=== PATIENT | female | born 1940 | race Caucasian/White ===

== ENCOUNTER 2017-10-21 17:09 | Observation (INO) ==
[2017-10-21] MEDS: 0.9 % SODIUM CHLORIDE 1,000 ML IV SCH (16:26)
[~2017-10-21 17:09] MED LIST: PANTOPRAZOLE 80 MG in 0.9 % SODIUM CHLORIDE 100 ML IV ONE
[2017-10-21 17:34] LABS: Basophils # (Auto) 0 K/mcL (0.0-0.3); Basophils % (Auto) 0 % (0.0-2.0); Eosinophils # (Auto) 0 K/mcL (0.0-0.7); Eosinophils % (Auto) 0.6 % (0.0-7.0); Granulocytes % (Auto) 75.5 % (38.0-78.0); Lymphocytes # (Auto) 0.7 K/mcL (1.5-4.8); Lymphocytes % (Auto) 14.1 % (15.5-49.0); Mean Cell Volume 89.8 fL (80.0-100.0); Mean Corpuscular HGB Conc 34.1 g/dL (31.0-36.0); Mean Corpuscular Hemoglobin 30.7 pg (26.0-34.0); Monocytes # (Auto) 0.5 K/mcL (0.1-0.9); Monocytes % (Auto) 9.8 % (1.0-12.0); Platelet Count 248 K/mcL (140-440); RBC 2.57 M/mcL (4.00-5.20); Red Cell Distribution Width 19.8 % (11.5-14.5)
[2017-10-21 18:30] LABS: Blood Urea Nitrogen 67 mg/dl (8-23)
[2017-10-21] MEDS ORDERED: HYDROmorphone 2 MG/ML VIAL IV PRN (19:06)
[2017-10-21] MEDS ORDERED: oxyCODONE HCL 5 MG TABLET PO PRN (19:06)
[2017-10-21] MEDS ORDERED: NALOXONE HCL 0.4 MG/ML VIAL IV PRN (19:06)
[2017-10-21] MEDS ORDERED: ONDANSETRON 4 MG/2 ML VIAL IV PRN (19:06)
[2017-10-21] MEDS ORDERED: ACETAMINOPHEN 325 MG TABLET PO PRN (19:06)
[2017-10-21] MEDS ORDERED: diphenhydrAMINE 25 MG CAPSULE PO PRN (19:19)
[2017-10-21] MEDS ORDERED: HYDROcodone/APAP 5/325MG TABLET PO PRN (19:19)
[2017-10-21] MEDS ORDERED: METHOCARBAMOL 500 MG TABLET PO PRN (19:19)
--- NOTE | 2017-10-21 19:29 | Internal Med History&Physical ---
Medical - H&P: HPI Patient information: Note initiated : 10/21/17 at 7:24 pm Service Date, if different from initiated Date: [] Patient: Michelle Matthews 77 y/o F admitted on 10/21/17 for EGD. Chief Complaint: [] History of present illness: Ms. Matthews is a 77 year old Female with multiple medical issues who was here at the EGD Suite today for an EGD Scopy The patient notes that for the last few weeks she has been having epigastric pain, decreased appetitie and some nausea, she has not been eating well, she notes she has epigastric fullness and has not been eating well. The patient was seen by her GI doctor for these symptoms. Patient also reports black stools for the last 5-6 days. The patient therefore underwent an EGD scoping today which revealed a gastric ulcer. The patient was frail and weak, and the GI doctor did not feel it safe that the patient should go home. He therefore advised the patient to be admitted to the hospital for further management. The patient notes that she has has been having cough with whitish sputum over the last few days, she has had chills a couple of days ago, she denies any reported history of fever. She has burning micturition for the last 2-3 days. The patient otherwise denies any acute symptoms. On my evaluation patient had a low-grade fever of 100.6. Heart rate slightly elevated between 80 to 110, she was breathing approximately 14-18 breaths per minute, saturating 100% on room air. Labs show a hemoglobin of 7.9, hematocrit of 23, WBC count of 2.51 platelet 248. Chemistry is normal. BUN is elevated at 67. INR is 1.1. Patient is being admitted to the hospital for management of upper GI bleed, and fever. - Constitutional Constitutional: Present: chills, fatigue, fever(s), headache(s), malaise - EENT Eyes: Absent: photophobia, spots in vision, tunnel vision Nose, mouth and throat: Absent: disequilibrium, vertigo - Cardiovascular Cardiovascular: Absent: chest pain, edema, palpatations, paroxysmal nocturnal dyspnea - Respiratory Respiratory: Present: cough. Absent: wheezing, change in phlegm color - Gastrointestinal Gastrointestinal: Present: nausea, vomiting - Genitourinary Genitourinary: Present: urinary frequency, urinary urgency. Absent: urinary hesitancy, urinary incontinence - Musculoskeletal Musculoskeletal: Present: back pain, myalgias - Integumentary Integumentary: Present: rash, wounds. Absent: new lesions - Neurological Neurological: Absent: focal weakness, frequent falls, headache(s), lack of coordination, syncope - Psychiatric Psychiatric: Present: anxiety, depression - Endocrine Endocrine: Absent: polydipsia, polyphagia, polyuria - Hematologic/Lymphatic Hematologic/Lymphatic: Absent: easy bleeding, easy bruising - Allergic/Immunologic Allergic/Immunologic: Absent: uticaria, wheezing, lip swelling Medical - H&P: H Medical history: Medical History (Last Reviewed 08/24/17 @ 15:56 by Modesta Vazquez RN) Raynaud phenomenon (Acute) Decreased GFR (Acute) Ulcer of right leg (Acute) SLE (systemic lupus erythematosus) (Acute) MARKO positive (Acute) History of squamous cell carcinoma (Chronic) Ankle wound (Chronic) Lupus (Chronic) Chronic anemia (Acute) Dehydration (Acute) Elevated troponin (Acute) Ischemic cardiomyopathy (Chronic) C. difficile diarrhea (Chronic) Skin tear (Chronic) Malignant Neoplasm of Skin (Chronic) Neuropathy (Chronic) Weakness (Chronic) Ulcer of lower limbs, except pressure ulcer (Chronic) Tremor, essential (Chronic) History of tobacco use (Chronic) Temporomandibular joint disorders (Chronic) Tachycardia (Chronic) Rectal prolapse (Chronic) Radiculopathy, lumbosacral or thoracic (Chronic) Premature ventricular contractions (Chronic) Peripheral vascular disease (Chronic) Osteoporosis screening (Chronic 01/17/14) Osteopenia (Chronic) Low back pain (Chronic) Insomnia (Chronic) Hypertension, essential (Chronic) Generalized hyperhidrosis (Chronic) Fibrocystic disease of breast (Chronic) Esophageal reflux (Chronic) Elevated hemidiaphragm (Chronic) Edema (Chronic) Dyspepsia (Chronic) Situational depression (Chronic) Degenerative arthritis (Acute) Collagenous colitis (Chronic) Chronic obstructive pulmonary disease (Chronic) Ataxia (Chronic) Actinic keratosis (Chronic) Femoral artery stenosis, left (Chronic) Anemia (Resolved) Atrial fibrillation with rapid ventricular response (Resolved) Back Pain (Resolved) Bronchitis (Resolved) Cellulitis (Resolved) Community acquired pneumonia (Resolved) Contusion of right shoulder (Resolved) Dermatitis (Resolved) Streptococcus pneumoniae (Resolved) Surgical wound, non healing (Resolved) Surgical history: Past Surgical History (Last Reviewed 08/24/17 @ 15:56 by Modesta Vazquez RN) History of surgery (Chronic) History of tonsillectomy (Chronic) History of shoulder surgery (Chronic) History of lumbar fusion (Chronic) History of hysterectomy (Chronic) History of esophagogastroduodenoscopy (Chronic 04/03/14) History of cardiac catheterization (Chronic) History of breast biopsy (Chronic 11/18/10) Status post angioplasty with stent (Chronic) Pertinent family history: Family History (Last Reviewed 08/24/17 @ 15:56 by Modesta Vazquez RN) Unknown Epilepsy Family history of malignant neoplasm Family history of arthritis Essential hypertension Acute myocardial infarction Cerebrovascular accident Medical - H&P: Meds Home Medications Medication Instructions Recorded Confirmed Type clopidogrel 75 mg tablet 75 mg PO QDAY 01/23/16 10/21/17 History diphenoxylate-atropine 2.5 1 tab PO .COMPLEX PRN #150 tab 03/27/16 10/21/17 Rx mg-0.025 mg tablet aspirin 81 mg tablet,delayed 81 mg PO QDAY 06/25/16 10/21/[address] - ER 3 mg See Label Instructions .ROUTE 08/31/16 10/21/17 Rx capsule,delayed,extended release .COMPLEX #1 each bisoprolol fumarate 5 mg tablet See Label Instructions PO .COMPLEX 11/03/16 History losartan 25 mg tablet 25 mg PO QHS 30 Days #30 tab 11/03/16 10/21/17 History duloxetine 60 mg capsule,delayed 60 mg PO QDAY 90 Days #90 cap 03/18/17 Rx release bupropion HCl 75 mg tablet See Label Instructions .ROUTE 04/29/17 10/21/17 Rx .COMPLEX #60 tab furosemide 20 mg tablet 20 mg PO QDAY #90 tab 07/30/17 10/21/17 Rx cholecalciferol (vitamin D3) 1,000 1,000 unit PO ONCE 08/24/17 10/21/17 History unit capsule diphenhydramine 25 mg capsule 50 mg PO TID-QID PRN 08/24/17 10/21/17 History methocarbamol 500 mg tablet 500 mg PO BID PRN #20 tab 08/24/17 10/21/17 Rx hydrocodone 7.5 mg-acetaminophen 1 tab PO TID PRN #90 tab MDD 3 09/16/17 Rx 325 mg tablet pantoprazole 40 mg tablet,delayed 40 mg PO QAM #90 tab 10/05/17 10/21/17 Rx release Allergies Allergy/AdvReac Type Severity Reaction Status Date / Time fentanyl Allergy Severe Dizziness Verified 10/21/17 15:57 and Over Sedation asparaginase [From Elspar] Allergy Unknown Unknown Verified 10/21/17 15:57 vancomycin Allergy Unknown Unknown Verified 10/21/17 15:57 SERGIO Inhibitors AdvReac Mild Cough Verified 10/21/17 15:57 Amoxicillin [From AUGMENTIN] AdvReac Mild Diarrhea Verified 10/21/17 15:57 Cephalosporins AdvReac Mild THRUSH Verified 10/21/17 15:57 chlorthalidone AdvReac Mild Diarrhea Verified 10/21/17 15:57 [From HYGROTON] ciprofloxacin [From Cipro] AdvReac Mild Diarrhea Verified 10/21/17 15:57 clarithromycin [From BIAXIN] AdvReac Mild Diarrhea Verified 10/21/17 15:57 clavulanic acid AdvReac Mild Diarrhea Verified 10/21/17 15:57 [From AUGMENTIN] clopidogrel [From PLAVIX] AdvReac Mild Diarrhea Verified 10/21/17 15:57 Cyclobenzaprine AdvReac Mild Diarrhea Verified 10/21/17 15:57 [From Flexeril] doxycycline [DOXYCYCLINE] AdvReac Mild DIZZINESS, Verified 10/21/17 15:57 NAUSEA, DIARRHEA Erythromycin Base AdvReac Mild Nausea Verified 10/21/17 15:57 levofloxacin [LEVOFLOXACIN] AdvReac Mild Diarrhea Verified 10/21/17 15:57 meperidine [From Demerol] AdvReac Mild Vomiting Verified 10/21/17 15:57 metoclopramide [From REGLAN] AdvReac Mild Diarrhea Verified 10/21/17 15:57 Minocycline [MINOCYCLINE] AdvReac Mild Diarrhea & Verified 10/21/17 15:57 Nausea rofecoxib [From VIOXX] AdvReac Mild Diarrhea Verified 10/21/17 15:57 Sulfa (Sulfonamide AdvReac Mild THRUSH Verified 10/21/17 15:57 Antibiotics) tramadol [From ULTRAM] AdvReac Mild Diarrhea Verified 10/21/17 15:57 venlafaxine [From EFFEXOR] AdvReac Mild Diarrhea Verified 03/15/18 15:57 ELS Allergy Unknown Unknown Uncoded 08/24/17 15:56 Medical - H&P: Exam - Constitutional Vitals: Temp Pulse Resp BP Pulse Ox 100.6 F H 98 H 20 136/82 100 10/21/17 16:45 10/21/17 18:14 10/21/17 18:14 10/21/17 18:14 10/21/17 18:14 Exam: GENERAL: The patient is a malnourished in no apparent distress. Is alert and oriented x3. VITAL SIGNS: Reviewed and as noted elsewhere. HEENT: Head is normocephalic and atraumatic. Extraocular muscles are intact. Pupils are equal, round, and reactive to light. Nares appeared normal. Mouth appears any without lesions. Mucous membranes are dry NECK: Normal to inspection, Supple, No lymphadenopathy or thyromegaly. LUNGS: Air entry equal on both sides, no wheezing, crackles or rhonchi noted. No accessory muscles of respiration HEART: Regular rate and rhythm irregular, S1 and S2 heard, no Gallop, S3 or Rub Noted, No Gross murmur heard. ABDOMEN: Soft, nontender, and nondistended. Positive bowel sounds. No hepatosplenomegaly was noted. EXTREMITIES: No cyanosis, clubbing, rash, lesions, edema present, small skinny legs, dry skin, no active infection noted. NEUROLOGIC: Cranial nerves II through XII are grossly intact. Motor and Sensory System Grossly Intact PSYCHIATRIC: Normal affect, Normal Mood. Appropriate Behavior. SKIN: No jaundice, No urticarial rash noted. Medical - H&P: Reslt - Labs CBC & Chem 7: 10/21/17 16:28 10/21/17 17:29 Labs: Short CBC 10/21/17 Range/Units 16:28 WBC 5.2 (4.5-11.0) K/mcL Hgb 7.9 L (12.0-15.0) g/dL Hct 23.1 L (36.0-48.0) % Plt Count 248 (140-440) K/mcL [facility] 10/21/17 17:29 Sodium 138 Potassium 3.7 Chloride 94 L Carbon Dioxide 27 BUN 67 H Creatinine 1.1 Glucose 89 Calcium 8.6 Medical - H&P: A/P - Narrative A/P Narrative: A/P Acute GI bleed Gastric Ulcer Fever Possible Urinary tract infection Acute blood loss anemia systolic, Congestive heart failure Hypertension Atrial fibrillation Coronary Artery Disease chronic back pain COPD stable Ischemic cardiomyopathy tobacco abuse Peripheral vascular disease malnutrition Lupus microscopic colitis Plan Admit to med floor, appears hemodynamically stable. IV PPI BID, GI notes low risk of rebleed therefore not being monitored in the UNIT. Transfuse 1 unit prbc monitor labs and trend hb hold asa and plavix get case management and OT/PT get chest x ray, ua, blood culture. IV rocephin for now Resume home bp medications. duonebs q6hrs continue po budesonide. DVT scd, h/o GIB DNR code status Cardiac Diet. Social History - Social History household members: alone housing: house lives independently: Yes marital status: occupational status: retired - Tobacco smoking status: Current every day smoker quit status: not considering quitting counseling given: provider counseling - Tobacco Type tobacco type: cigarettes - Cigarette Details per day: 5 pack-years: 40 - Alcohol alcohol intake frequency: a few times a month - Substance use substance use type: does not use
[2017-10-21] MEDS ORDERED: 0.9 % SODIUM CHLORIDE 250 ML IV SCH (19:30)
[2017-10-21] MEDS ORDERED: cefTRIAXone 1 GM VIAL IV SCH (19:45)
[2017-10-21] MEDS ORDERED: BUDESONIDE 3 MG CAP.XL.24H PO SCH (21:00)
[2017-10-21] MEDS ORDERED: BISOPROLOL 5 MG TABLET PO SCH (21:00)
[2017-10-21] MEDS ORDERED: LOSARTAN 25 MG TABLET PO SCH (21:00)
[2017-10-21] MEDS: PANTOPRAZOLE 40 MG VIAL IV SCH (21:27)
[2017-10-21] MEDS: 0.9 % SODIUM CHLORIDE 10 ML SYRINGE IV SCH (21:29)
[2017-10-22 00:17] LABS: Appearance,Urine CLEAR; Bacteria,Urine 0 /hpf (0); Bilirubin,Urine NEG (NEG); Color,Urine YELLOW; Glucose,Urine (UA) NEGATIVE (NEG); Leukocyte Esterase,Urine NEG /uL (NEG); Protein,Urine NEG (NEG); Specific Gravity,Urine 1.014 (1.000-1.035); Urine Blood 0.03 mg/dL (<0.03); Urine RBC 0 /hpf (0-1); Urine Squamous Epithelial Cell < 1 /hpf (0-4); Urine WBC < 1 /hpf (0-4); Urobilinogen,Urine NEG (NEG)
[2017-10-22] MEDS: 0.9 % SODIUM CHLORIDE 10 ML SYRINGE IV SCH (05:01)
[2017-10-22] MEDS: 0.9 % SODIUM CHLORIDE 1,000 ML IV SCH ×2 (05:03→13:51)
[2017-10-22 05:58] LABS: ALT/SGPT 6 U/l (0-40); Albumin 2.7 gm/dL (3.2-5.2); Albumin/Globulin Ratio 1.1 (1.0-2.3); Alkaline Phosphatase 45 U/L (39-117); Bilirubin,Direct < 0.2 mg/dL (0.0-0.3); Blood Urea Nitrogen 53 mg/dl (8-23); Gamma Glutamyl Transpeptidase 18 U/L (5-36); Uric Acid 9.6 mg/dL (2.5-8.0)
--- NOTE | 2017-10-22 05:59 | XRay Report ---
INDICATION: Fever TECHNIQUE: AP chest x-ray,portable semiupright COMPARISON: 11/06/2016, 08/12/2016, 06/08/1960 FINDINGS:Lungs are negative. No parenchymal infiltrate or mass. No pneumonia. Heart size and vascularity are normal. Thoracic aorta is mildly ectatic and tortuous. There is thoracolumbar scoliosis IMPRESSION: 1. No acute abnormality. 2. No interval change since 11/06/2016 Interpreted and Authenticated by: Alvin Boyd 10/22/17
[2017-10-22 06:23] LABS: Basophils # (Auto) 0 K/mcL (0.0-0.3); Basophils % (Auto) 0.4 % (0.0-2.0); Eosinophils # (Auto) 0.3 K/mcL (0.0-0.7); Eosinophils % (Auto) 5.9 % (0.0-7.0); Granulocytes % (Auto) 68.5 % (38.0-78.0); Lymphocytes # (Auto) 0.7 K/mcL (1.5-4.8); Lymphocytes % (Auto) 13.7 % (15.5-49.0); Mean Corpuscular HGB Conc 32.2 g/dL (31.0-36.0); Monocytes # (Auto) 0.6 K/mcL (0.1-0.9); Monocytes % (Auto) 11.5 % (1.0-12.0); Platelet Count 181 K/mcL (140-440); RBC 2.85 M/mcL (4.00-5.20)
[2017-10-22] MEDS: PANTOPRAZOLE 40 MG VIAL IV SCH (07:05)
[2017-10-22] MEDS ORDERED: POTASSIUM CHLORIDE 40 MEQ in DEXTROSE 5% IN WATER 500 ML IV ONE (08:00)
[2017-10-22] MEDS ORDERED: DULoxetine 30 MG CAPSULE PO SCH (09:00)
[2017-10-22] MEDS ORDERED: BUDESONIDE 3 MG CAP.XL.24H PO SCH (09:00)
[2017-10-22] MEDS ORDERED: FUROSEMIDE 20 MG TABLET PO SCH (09:00)
[2017-10-22] MEDS: buPROPion 75 MG TABLET PO SCH ×2 (09:29→13:51)
--- NOTE | 2017-10-22 11:48 | Discharge Summary ---
Medical - DS: Prov Patient information: Note initiated : 10/22/17 at 11:43 am Service Date, if different from initiated Date: [] Patient: Michelle Matthews 77 y/o F admitted on 10/21/17 for Upper GI bleed/ fever . Chief Complaint: [] Date of admission: 10/21/17 19:30 Discharge date: 10/22/17 Admitting clinician: Pinky Benton Discharging clinician: Pinky Benton Medical - DS: Meds - Discharge Medications Prescriptions: Multivitamin with Folic Acid [Sm One Daily Multivitamin Tab] 400 mcg PO POSTTR # 30 tab Pantoprazole Sodium [Protonix] 40 mg PO BIDAC #90 tab Thiamine HCl [B-1] 100 mg PO DAILY #90 tab Active and Home Medications: Home Medications clopidogrel 75 mg tablet 75 mg PO QDAY 01/23/16 [History Confirmed 10/21/17 Last Taken 10/19/17] diphenoxylate-atropine 2.5 mg-0.025 mg tablet 1 tab PO .COMPLEX PRN #150 tab [Rx Confirmed 10/21/17 Last Taken 10/19/17] aspirin 81 mg tablet,delayed release 81 mg PO QDAY 06/25/16 [History Confirmed 10/21/17 Last Taken 10/19/17] budesonide DR - ER 3 mg capsule,delayed,extended release See Label Instructions .ROUTE .COMPLEX #1 each 08/31/16 [Rx Confirmed 10/21/17 Last Taken 10/19/17] bisoprolol fumarate 5 mg tablet See Label Instructions PO .COMPLEX 11/03/16 [ History Confirmed 10/21/17 Last Taken 10/19/17] losartan 25 mg tablet 25 mg PO QHS 30 Days #30 tab 11/03/16 [History Confirmed 10/21/17 Last Taken 10/19/17] duloxetine 60 mg capsule,delayed release 60 mg PO QDAY 90 Days #90 cap 03/18/17 [Rx Confirmed 10/21/17 Last Taken 10/19/17] bupropion HCl 75 mg tablet See Label Instructions .ROUTE .COMPLEX #60 tab [Rx Confirmed 10/21/17 Last Taken 10/19/17] furosemide 20 mg tablet 20 mg PO QDAY #90 tab 07/30/17 [Rx Confirmed 10/21/17 Last Taken 10/19/17] cholecalciferol (vitamin D3) 1,000 unit capsule 1,000 unit PO ONCE 08/24/17 [ History Confirmed 10/21/17 Last Taken 10/19/17] diphenhydramine 25 mg capsule 50 mg PO TID-QID PRN 08/24/17 [History Confirmed 10/21/17 Last Taken 10/19/17] methocarbamol 500 mg tablet 500 mg PO BID PRN #20 tab 08/24/17 [Rx Confirmed Last Taken 10/19/17] hydrocodone 7.5 mg-acetaminophen 325 mg tablet 1 tab PO TID PRN #90 tab MDD 3 [Rx Confirmed 10/21/17 Last Taken 10/19/17] pantoprazole 40 mg tablet,delayed release 40 mg PO QAM #90 tab 10/05/17 [Rx Confirmed 10/21/17 Last Taken 10/19/17] Medical - DS: Hosp Hospital course: Ms. Matthews is a 77 year old Female with multiple medical issues who was here at the EGD Suite today for an EGD Scopy, The patient notes that for the last few weeks she has been having epigastric pain, decreased appetite and some nausea, she has not been eating well, she notes she has epigastric fullness and has not been eating well. The patient was seen by her GI doctor for these symptoms. Patient also reports black stools for the last 5-6 days. The patient therefore underwent an EGD scoping today which revealed a gastric ulcer. The patient was frail and weak, and the GI doctor did not feel it safe that the patient should go home. He therefore advised the patient to be admitted to the hospital for further management. The patient notes that she has has been having cough with whitish sputum over the last few days, she has had chills a couple of days ago, she denies any reported history of fever. She has burning micturition for the last 2-3 days. The patient otherwise denies any acute symptoms. On my evaluation patient had a low-grade fever of 100.6. Heart rate slightly elevated between 80 to 110, she was breathing approximately 14-18 breaths per minute, saturating 100% on room air. Labs show a hemoglobin of 7.9, hematocrit of 23, WBC count of 2.51 platelet 248. Chemistry is normal. BUN is elevated at 67. INR is 1.1. Patient is being admitted to the hospital for management of upper GI bleed, and fever. The patient was observed overnght, her Hb this AM was 8.3, no more episodes of bleeding, K was 3.2 replaced patient is stable for discharge as per GI. Chest x ray is neg for pneumonia, UA neg for UTI. The patient will be on pantoprazole 40mg bid, AC, Hold aspirin, continue plavix as per GI physician Patient has h/o etoh use, adivsed to take thiamine and multivitamin with folate. patient at the time of discharge is dynamically stable, tolerating p.o. diet very well and is ambulatory. She has been advised to follow-up with the GI doctor and her PCP provider Discharge diagnosis: Gastric Ulcer - Time Spent with Patient Total time spent providing and/or coordinating discharge services: Greater than 30 minutes Medical - DS: Exam - Constitutional Vitals: Vital Signs Temp Pulse Pulse Resp BP BP Pulse Ox 10/22/17 11:32 97.7 F 16 128/64 97 10/22/17 08:00 97.7 F 16 142/82 96 10/22/17 04:00 97.9 F 72 16 122/78 96 10/22/17 00:00 97.3 F 64 18 123/62 95 10/21/17 20:00 97.6 F 78 18 138/88 95 10/21/17 18:14 98 H 20 136/82 100 10/21/17 17:44 114 H 18 138/67 100 10/21/17 17:14 81 20 139/59 96 10/21/17 16:59 78 20 136/66 100 10/21/17 16:45 100.6 F H 110 H 22 142/84 96 10/21/17 16:44 88 20 139/54 100 10/21/17 16:35 100.6 F H 22 96 10/21/17 16:00 100.6 F H 113 H 22 130/64 96 Intake and Output 10/21/17 10/22/17 10/22/17 21:59 05:59 13:59 Intake Total 325 / 325 1150 / 1150 Output Total 100 / 100 200 / 200 Balance 325 / 325 1050 / 1050 -200 / -200 Intake: IV 1000 / 1000 Sodium Chloride 0.9% 1,000 ml @ 1000 / 1000 100 mls/hr IV .Q10H [facility] Rx#: [id number] Oral 150 / 150 Blood Product 325 / 325 Output: Void Amount 100 / 100 200 / 200 Other: # Voids 1 1 Weight 94 lb 8 oz 94 lb 8 oz Patient Weight 10/23/17 05:59 Weight 94 lb 8 oz Additional comments: Constitutional; Afebrile, cooperative, alert, not in distress. Eyes- No icterus, , No periorbital swelling Ears- Ext ear normal, hearing normal to conversation. Neck- Midline trachea, supple Respiratory system: Air Entry equal on both sides, No crackles or wheezing, no rhonchi. CVS- Rate rhythm regular, S1,S2 heard, no gallop, no rub. Abdomen- Soft nontender abdomen, no organomegaly, no tenderness, no guarding or rigidity, SUPPORT SPECIALIST- AOOx3, moving all extremities, no gross focal deficit noted. Medical - DS: Data Labs on day of discharge: Labs from last 24 hours 10/22/17 10/22/17 10/21/17 04:22 04:22 22:00 WBC 4.8 RBC 2.85 L Hgb 8.3 L Hct 25.7 L MCV 90.0 MCH 29.0 MCHC 32.2 RDW 19.0 H Plt Count 181 MPV 9.3 Gran % 68.5 Lymph % (Auto) 13.7 L [place] % (Auto) 11.5 Eos % (Auto) 5.9 Baso % (Auto) 0.4 Gran # 3.3 Lymph # (Auto) 0.7 L [place] # (Auto) 0.6 Eos # (Auto) 0.3 Baso # (Auto) 0 POC PT POC INR Sodium 141 Potassium 3.2 L Chloride 102 Carbon Dioxide 26 Anion Gap 13.0 BUN 53 H Creatinine 1.1 GFR Calculation 49 Glucose 79 Uric Acid 9.6 H Calcium 8.2 L Phosphorus 2.7 Magnesium 1.6 Total Bilirubin 0.5 Direct Bilirubin < 0.2 GGT 18 AST 12 ALT 6 Alkaline Phosphatase 45 Lactate Dehydrogenase 158 Total Protein 5.2 L Albumin 2.7 L Globulin 2.5 Albumin/Globulin Ratio 1.1 Triglycerides 136 Urine Color Yellow Urine Appearance Clear Urine pH 7.0 Ur Specific [place] 1.014 Urine Protein Neg Urine Glucose (UA) Negative Urine Ketones 5/tr A Urine Occult Blood 0.03 A Urine Nitrate Neg Urine Bilirubin Neg Urine Urobilinogen Neg Ur Leukocyte Esterase Neg Urine RBC 0 Urine WBC < 1 Ur Squamous Epith Cells < 1 Urine Bacteria 0 Ur Culture Indicated? No 10/21/17 10/21/17 10/21/17 17:29 16:28 16:27 WBC 5.2 RBC 2.57 L Hgb 7.9 L Hct 23.1 L MCV 89.8 MCH 30.7 MCHC 34.1 RDW 19.8 H Plt Count 248 MPV 9.5 Gran % 75.5 Lymph % (Auto) 14.1 L [place] % (Auto) 9.8 Eos % (Auto) 0.6 Baso % (Auto) 0 Gran # 3.9 Lymph # (Auto) 0.7 L [place] # (Auto) 0.5 Eos # (Auto) 0 Baso # (Auto) 0 POC PT 12.8 POC INR 1.1 Sodium 138 Potassium 3.7 Chloride 94 L Carbon Dioxide 27 Anion Gap 17.0 H BUN 67 H Creatinine 1.1 GFR Calculation 49 Glucose 89 Uric Acid Calcium 8.6 Phosphorus Magnesium Total Bilirubin Direct Bilirubin GGT AST ALT Alkaline Phosphatase Lactate Dehydrogenase Total Protein Albumin Globulin Albumin/Globulin Ratio Triglycerides Urine Color Urine Appearance Urine pH Ur Specific [place] Urine Protein Urine Glucose (UA) Urine Ketones Urine Occult Blood Urine Nitrate Urine Bilirubin Urine Urobilinogen Ur Leukocyte Esterase Urine RBC Urine WBC Ur Squamous Epith Cells Urine Bacteria Ur Culture Indicated? Medical - DS: A/P - Patient/Caregiver Discharge Instructions Activity: increase activity as tolerated Diet: Regular Diet Additional Instructions: Please do not take aspirin anymore. Please stop taking any ibuprofen Motrin Advil or any nonsteroidal anti- inflammatory drugs. Take pantoprazole 40 mg twice a day 30 minutes before meal on an empty stomach Go to the emergency room if there is any blood in the stools, black stools persist or if you have any other acute concerns Follow-up with Dr. Mendoza's office in 1-2 weeks for follow-up on the biopsy results Follow-up with your PCP in 1 week Please take multivitamins and thiamine supplement Besides the medications listed above no changes in her chronic home medications have been done is take them as prescribed by her previous providers - Follow up Plan Follow up with: Mark Carrasquillo MD [Physician] - 10/27/17 2:45 pm Disposition: Home, Self-Care Prognosis: Fair Rehab Potential: Fair I certify that the patient requires SNF services: No Overall status at discharge: patient is progressing back to baseline Medical - DS: Qual - VTE Deep Vein Thrombosis/Pulmonary Embolism Present on Admission: No
[2017-10-22] MEDS ORDERED: IPRATROPIUM/ALBUTEROL 3 ML AMPUL.NEB NEB SCH (19:22)
--- NOTE | 2017-10-25 08:35 | EGD Procedure Note ---
EGD Procedure Notes - Procedure Information Patient information: Note initiated : 10/25/17 at 8:33 am Service Date: 10/21/17 Patient: Michelle Matthews 77 y/o F admitted on 10/21/17 for Upper GI bleed/ fever . Pre-op diagnosis general: GI bleed. Gastric ulcer. Post-Op Diagnosis general: Gastric ulcer. Melena. GI bleed, resolved. Procedure Narrative: The procedure, alternatives and risks were discussed with the patient and the patient's questions were answered. With endoscopist-administered intravenous sedation, the Olympus video endoscope was introduced into the esophagus. The esophagus, stomach, and duodenum were examined sequentially. The esophagus appears normal. No hiatal hernia seen. A prepyloric gastric ulcer was seen. There was no bleeding and no stigmata of bleeding. The gastric mucosa , antrum, pyloric ring and duodenum were otherwise normal. The scope was withdrawn. Assessment: Gastric ulcer. Melena. GI bleed, resolved.
== END 2017-10-22 13:05 | disposition home or self-care (01) ==
LOC: SSSU 17:09 → MEDSUR 18:44 → INTOOBSV 19:30
PROVIDERS: ADMIT Internal Medicine; ATTEND Internal Medicine